=== PATIENT | female | born 2005 | race Caucasian/White ===

== ENCOUNTER 2023-01-15 17:06 | Emergency (ER) | payer OTHER ==
[2023-01-15] MEDS ORDERED: IBUPROFEN 400 MG TAB ONE (19:21)
[2023-01-15] MEDS ORDERED: IBUPROFEN 200 MG TAB PO ONE (19:21)
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
[2023-01-15 22:18] VITALS: TEMP 97; O2SAT 99
[2023-01-15 22:21] VITALS: BP 110/68
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
== END 2023-01-15 20:11 | disposition home or self-care (01) ==
LOC: ER 17:06
DX: S29.012A Strain of muscle and tendon of back wall of thorax, initial encounter (principal); S50.01XA Contusion of right elbow, initial encounter
CPT/HCPCS: 71045; 99283